=== PATIENT | male | born 1975 | race African-American/Black ===

== ENCOUNTER 2024-06-09 11:31 | Emergency (ER) | payer MEDICAID, OTHER ==
[~2024-06-09] VITALS: Ht 188 cm; Wt 88.6 kg
[2024-06-09 11:36] VITALS: TEMP 98.3
[2024-06-09 12:17] LABS: COVID AG,FIA SOURCE NASAL SWAB
[2024-06-09 12:39] LABS: SARS-COV2 (COVID) ANTIGEN,FIA Negative (Negative)
[2024-06-09 12:40] LABS: INFLUENZA TYPE A NEGATIVE FOR TYPE A (NEGATIVE); INFLUENZA TYPE B NEGATIVE FOR TYPE B (NEGATIVE)
[2024-06-09] MEDS ORDERED: AZIT250T9 PO (14:59)
[2024-06-09] MEDS ORDERED: ALBU18HF12 IH (14:59)
[2024-06-09 15:00] VITALS: PULSE 80; RESP 18; O2SAT 98
[2024-06-09] MEDS: IPRATROPIUM BROMIDE 0.5 MG/2.5 ML NEB SOLUTION NEB ONE (15:00)
[2024-06-09] MEDS: ALBUTEROL SULFATE 2.5 MG/0.5 ML NEB SOLUTION NEB ONE (15:00)
[2024-06-09 15:04] VITALS: BP 128/92; PULSE 80; RESP 17; O2SAT 98
== END 2024-06-09 15:32 | disposition home or self-care (01) ==
LOC: EMS 11:35
DX: J98.4 Other disorders of lung (principal); J45.909 Unspecified asthma, uncomplicated; F17.210 Nicotine dependence, cigarettes, uncomplicated; Z20.822 Contact with and (suspected) exposure to COVID-19
CPT/HCPCS: 87804; 94640; 99283